=== PATIENT | male | born 1985 ===

== ENCOUNTER 2017-10-03 01:10 | Emergency (ER) | payer OTHER ==
[2017-10-03 02:06] VITALS: BP 168/119; PULSE 118; RESP 18; TEMP 98.3; O2SAT 97
[2017-10-03] MEDS ORDERED: Lidocaine 2% Inj (20ml) INFIL ONE (02:30)
--- NOTE | 2017-10-03 02:38 | ED PDOC ---
HPI: General Adult Time Seen by Provider: 10/03/17 02:36 Chief Complaint (Nursing): Abnormal Skin Integrity Chief Complaint (Provider): RIGHT HAND LACERATION History Per: Patient (31 Y/O MALE HERE WITH RIGHT HAND LACERATION THAT OCCURRED 20 MINUTE PRIOR TO ED ARRIVAL. STATES HE WAS CUTTING VEGETABLES WITH CLEAN WHEN HE INJURY INDEX FINGER. TETANUS UP TO DATE. ABLE TO FLEX AND EXTEND FINGER WITHOUT DIFFICULTY.) Past Medical History Reviewed: Historical Data, Nursing Documentation, Vital Signs Vital Signs: Last Vital Signs Temp 98.3 F 10/03/17 01:31 Pulse 118 H 10/03/17 01:31 Resp 18 10/03/17 01:31 BP 168/119 H 10/03/17 01:31 Pulse Ox 97 10/03/17 03:23 - Family History Family History: States: No Known Family Hx - Allergies Allergies/Adverse Reactions: Allergies Allergy/AdvReac Type Severity Reaction Status Date / Time No Known Allergies Allergy Verified 10/03/17 02:07 Review of Systems ROS Statement: Except As Marked, All Systems Reviewed And Found Negative Physical Exam - Reviewed Nursing Documentation Reviewed: Yes Vital Signs Reviewed: Yes - Physical Exam Appears: Positive for: Well, Non-toxic, No Acute Distress Head Exam: Positive for: ATRAUMATIC, NORMAL INSPECTION, NORMOCEPHALIC Skin: Positive for: Normal Color, Warm, DRY Eye Exam: Positive for: EOMI, Normal appearance, PERRL ENT: Positive for: Normal ENT Inspection Neck: Positive for: Normal, Painless ROM Cardiovascular/Chest: Positive for: Regular Rate, Rhythm Respiratory: Positive for: CNT, Normal Breath Sounds Gastrointestinal/Abdominal: Positive for: Normal Exam, Bowel Sounds, Soft Back: Positive for: Normal Inspection Extremity: Positive for: Normal ROM, Other (1.5CM LACERATION LINEAR VOLAR SURFACE MIDDLE PHALANX. ABLE TO FLEX AT PIP/DIP.) Neurologic/Psych: Positive for: Alert, Oriented - ECG O2 Sat by Pulse Oximetry: 97 Disposition - Clinical Impression Clinical Impression: Finger laceration - Patient ED Disposition Is Patient to be Admitted: No - Disposition Disposition: Routine/Home Disposition Time: 04:09 Condition: FAIR Additional Instructions: F/U WITH ED/PMD/URGENT CARE IN 7 TO 10 DAYS FOR REMOVAL OF SUTURES Instructions: Finger Laceration (ED) Forms: [employer] (Vietnamese), [facility] ED School/Work Excuse Procedure: Wound Repair - Time Performed Time Performed: 03:22 - Time Out Time Out: Site verified - Consent Obtained Consent obtained: Verbal - Performed by Performed by: Mid-level Provider - Indications Indication(s):: Laceration - Location Location:: Right, Hand (INDEX FINGER) Toe:: Right, 2 Shape:: Linear Dimensions Length cm: 1.5 CM Depth:: Epidermis - Anesthetic Technique Anesthetic Technique: Regional block Local/Regional Anesthetic:: Lidocaine 2% - Irrigated Irrigated with ml of normal saline: 150ML - Complexity Complexity:: Simple (one layer) - Wound repair method Sutures:: # (FOUR), Size (4-0), Type (NYLON), Technique (INTERRUPTED) - Patient tolerated procedure Patient Tolerated Procedure:: Well
[2017-10-03] MEDS ORDERED: Lidocaine 2% Inj (20ml) ONE (03:10)
== END 2017-10-03 04:27 | disposition home or self-care (01) ==
LOC: H.ER 01:10
DX: S61.211A Laceration without foreign body of left index finger without damage to nail, initial encounter (principal); W26.0XXA Contact with knife, initial encounter; Y93.G1 Activity, food preparation and clean up